=== PATIENT | male | born 1960 | race Hispanic/Latino ===

== ENCOUNTER → 2020-08-09 | Outpatient (CLI) | payer BC, OTHER ==
[~2020-08-09] MED LIST: FENTANYL CITRATE/PF 100MCG/2 ML INJ ONE; MIDAZOLAM HCL 2 MG/2 ML VIAL ONE
[2020-08-09 08:20] LABS: HEMOGLOBIN 15.8 g/dL (14.0-18.0)
[2020-08-09 08:42] LABS: INR 0.86; PROTHROMBIN TIME 12.3 seconds (11.9-14.5)
[2020-08-09 08:43] LABS: PARTIAL THROMBOPLASTIN TIME 27.7 seconds (23.8-35.5)
== END ==
LOC: CT 07:58
PROVIDERS: ATTEND Urology
DX: R97.20 Elevated prostate specific antigen [PSA] (principal)
CPT/HCPCS: 10009; 36415; 38505; 85014; 85049; 85610; 85730; 88172; 88173; 88305; 88342; 99152; 99153; J2250; J3010; U0002

== ENCOUNTER 2021-05-08 19:47 | Emergency (ER) | payer OTHER ==
[~2021-05-08] VITALS: Ht 170.2 cm; Wt 117.9 kg
[2021-05-08] MEDS ORDERED: HYDROMORPHONE 1MG/1ML INJ IV PRN (20:15)
[2021-05-08] MEDS ORDERED: HYDROMORPHONE 1MG/1ML INJ ONE (20:26)
[2021-05-08] MEDS ORDERED: ONDANSETRON HCL INJ 2MG/ML 2ML 2 MG/ML VIAL ONE (20:26)
[2021-05-08] MEDS ORDERED: ONDANSETRON HCL INJ 2MG/ML 2ML 2 MG/ML VIAL IV STA (20:26)
[2021-05-08 21:47] VITALS: BP 134/82
== END 2021-05-08 21:50 | disposition home or self-care (01) ==
LOC: ER 20:00
DX: M54.32 Sciatica, left side (principal); Z85.46 Personal history of malignant neoplasm of prostate
CPT/HCPCS: 93971; 99284; J1170; J2405